=== PATIENT | female | born 1940 | race Caucasian/White ===

== ENCOUNTER → 2018-12-13 | Outpatient (CLI) | payer OTHER ==
[~2018-12-13] MED LIST: ACET325; ACET325 PO; AMOCLA875 PO; ASPI325; ASPI325 PO; ASPI81CH PO; BUPR150ER; CALCAVITDA; CALCAVITDA PO; CALPRATL; DIPH25; DOC250 PO; DOCU100; DOCU100 PO; DULO60; DULO60 PO; FURO40; FURO40 PO; FURO80; GLUC500 PO; GUAI600T33 PO; IBUP600 PO; INSULANPEN; LOVA40; METF500 PO; METO5; MULVITMINF; NYST100P; OMEP20ER PO; OXYACE5T PO; OXYB5; OXYB5 PO; PRAV20 PO; PROACE100; PROACE100 PO; PROM25; SENN187 PO; SERT100; SIMV40 PO; SITA100T2 PO; SPIR25; SPIR25 PO; SPIR50; TRIA80TC; VERA120; VERA120 PO; VERA180ERB PO; VERA240ER; [UNRECOGNIZED DRUG - OTHER]; [UNRECOGNIZED DRUG - OTHER]; [UNRECOGNIZED DRUG - OTHER]
[2018-12-13 15:12] LABS: Hematocrit 41.7 % (33.0-51.0); Mean Corpuscular HGB 30.1 pg (26.0-34.0); Mean Corpuscular HGB Conc 31.2 g/dL (31.5-36.5); Mean Corpuscular Volume 97 fL (80-100); Mean Platelet Volume 10.1 fL (9.1-12.4); Platelet Count 216 K/mm3 (150-400); RDW Coefficient Variation 13.6 % (11.7-14.2); RDW Standard Deviation 48.7 fL (35.1-46.3); Red Blood Cell Count 4.32 M/mm3 (3.80-5.20); White Blood Cell Count 8.42 K/mm3 (4.00-11.30)
[2018-12-13 15:28] LABS: Bun/Creatinine Ratio 24.8 (12.0-20.0); Calcium, Blood 9.2 mg/dL (8.5-10.1); Creatinine, Blood 1.25 mg/dL (0.40-1.00); Potassium, Blood 3.6 mmol/L (3.5-5.5)
== END | disposition home or self-care (01) ==
LOC: EDSTATUS 10:20 → LAB UVN 14:45
DX: I69.354 Hemiplegia and hemiparesis following cerebral infarction affecting left non-dominant side (principal); I48.91 Unspecified atrial fibrillation; E11.610 Type 2 diabetes mellitus with diabetic neuropathic arthropathy; I10 Essential (primary) hypertension
CPT/HCPCS: 80048; 85027

== ENCOUNTER → 2019-07-23 | Outpatient (CLI) | payer OTHER | END | disposition home or self-care (01) | LOC: LAB UVN 11:20 → EDSTATUS 15:28 | DX: E11.610 Type 2 diabetes mellitus with diabetic neuropathic arthropathy (principal) | CPT/HCPCS: 83036 ==

== ENCOUNTER → 2019-10-03 | Outpatient (CLI) | payer OTHER | END | disposition home or self-care (01) | LOC: LAB UVN 08:03 → EDSTATUS 13:15 → LAB UVN 13:16 | DX: E11.610 Type 2 diabetes mellitus with diabetic neuropathic arthropathy (principal) | CPT/HCPCS: 36415; 83036 ==

== ENCOUNTER → 2020-03-19 | Outpatient (CLI) | payer OTHER | END | disposition home or self-care (01) | LOC: LAB UVN 02:07 → EDSTATUS 09:33 | DX: E11.610 Type 2 diabetes mellitus with diabetic neuropathic arthropathy (principal) | CPT/HCPCS: 83036 ==

== ENCOUNTER → 2020-05-11 | Outpatient (CLI) | payer OTHER ==
[2020-05-11 06:24] LABS: Bun/Creatinine Ratio 26.7 (12.0-20.0); Calcium, Blood 9.9 mg/dL (8.5-10.1); Creatinine, Blood 1.01 mg/dL (0.40-1.00); Potassium, Blood 4.3 mmol/L (3.5-5.5)
== END | disposition home or self-care (01) ==
LOC: LAB UVN 05:58 → EDSTATUS 09:37
PROVIDERS: Nurse Practitioner Adult Health
DX: E11.610 Type 2 diabetes mellitus with diabetic neuropathic arthropathy (principal)
CPT/HCPCS: 80048

== ENCOUNTER → 2020-05-19 | Outpatient (CLI) | payer OTHER ==
[2020-05-19 06:09] LABS: BASOPHILS ABSOLUTE AUTO 0.02 K/mm3 (0.00-0.23); BASOPHILS PERCENT AUTO 0 % (0-2); EOSINOPHILS ABSOLUTE AUTO 0.22 K/mm3 (0.00-0.68); EOSINOPHILS PERCENT AUTO 3 % (0-6); Hematocrit 41.6 % (33.0-51.0); Hemoglobin 12.8 g/dL (11.5-16.0); IMMATURE GRAN ABSOLUTE AUTO 0.03 K/mm3 (0.00-0.10); IMMATURE GRAN PERCENT AUTO 1 % (0-1); LYMPHOCYTES ABSOLUTE AUTO 2.49 K/mm3 (0.84-5.20); LYMPHOCYTES PERCENT AUTO 39 % (21-46); MONOCYTES ABSOLUTE AUTO 0.56 K/mm3 (0.16-1.47); MONOCYTES PERCENT AUTO 9 % (4-13); Mean Corpuscular HGB 29.7 pg (26.0-34.0); Mean Corpuscular HGB Conc 30.8 g/dL (31.5-36.5); Mean Corpuscular Volume 97 fL (80-100); Mean Platelet Volume 10.1 fL (9.1-12.4); NEUTROPHILS ABSOLUTE AUTO 3.12 K/mm3 (1.96-9.15); NEUTROPHILS PERCENT AUTO 48 % (41-73); Platelet Count 248 K/mm3 (150-400); RDW Standard Deviation 46.8 fL (35.1-46.3); Red Blood Cell Count 4.31 M/mm3 (3.80-5.20); White Blood Cell Count 6.44 K/mm3 (4.00-11.30)
[2020-05-19 06:28] LABS: Bun/Creatinine Ratio 24.3 (12.0-20.0); Calcium, Blood 9.7 mg/dL (8.5-10.1); Creatinine, Blood 0.95 mg/dL (0.40-1.00); Potassium, Blood 4.3 mmol/L (3.5-5.5); Thyroid Stimulating Hormone 3.05 uIU/mL (0.360-4.800)
== END | disposition home or self-care (01) ==
LOC: LAB UVN 05:59 → EDSTATUS 10:20
PROVIDERS: Nurse Practitioner Adult Health
DX: Z29.9 Encounter for prophylactic measures, unspecified (principal)
CPT/HCPCS: 80048; 84443; 85025

== ENCOUNTER → 2020-06-10 | Outpatient (CLI) | payer OTHER | END | disposition home or self-care (01) | LOC: EDSTATUS 09:37 → LAB UVN 20:15 | DX: E11.610 Type 2 diabetes mellitus with diabetic neuropathic arthropathy (principal) | CPT/HCPCS: 83036 ==

== ENCOUNTER → 2020-09-03 | Outpatient (CLI) | payer OTHER | END | disposition home or self-care (01) | LOC: LAB UVN 06:12 → EDSTATUS 13:10 | DX: E11.610 Type 2 diabetes mellitus with diabetic neuropathic arthropathy (principal); I69.354 Hemiplegia and hemiparesis following cerebral infarction affecting left non-dominant side; E66.01 Morbid (severe) obesity due to excess calories | CPT/HCPCS: 83036 ==

== ENCOUNTER → 2020-10-23 | Outpatient (CLI) | payer OTHER ==
[2020-10-23 05:55] LABS: Bun/Creatinine Ratio 21.5 (12.0-20.0); Calcium, Blood 9.7 mg/dL (8.5-10.1); Creatinine, Blood 0.98 mg/dL (0.40-1.00); Potassium, Blood 4.1 mmol/L (3.5-5.5)
== END | disposition home or self-care (01) ==
LOC: LAB UVN 05:32 → EDSTATUS 08:49
PROVIDERS: Internal Medicine
DX: E11.610 Type 2 diabetes mellitus with diabetic neuropathic arthropathy (principal)
CPT/HCPCS: 80048

== ENCOUNTER → 2020-11-26 | Outpatient (CLI) | payer OTHER | END | disposition home or self-care (01) | LOC: LAB UVN 05:00 → EDSTATUS 14:07 | DX: E11.610 Type 2 diabetes mellitus with diabetic neuropathic arthropathy (principal) | CPT/HCPCS: 83036 ==

== ENCOUNTER → 2021-02-18 | Outpatient (CLI) | payer OTHER | LOC: LAB UVN 05:00 → EDSTATUS 11:14 | DX: E11.9 Type 2 diabetes mellitus without complications (principal); Z79.84 Long term (current) use of oral hypoglycemic drugs; Z88.8 Allergy status to other drugs, medicaments and biological substances; Z88.1 Allergy status to other antibiotic agents | CPT/HCPCS: 83036 ==

== ENCOUNTER → 2021-05-13 | Outpatient (CLI) | payer OTHER | LOC: LAB UVN 10:40 → EDSTATUS 15:31 | DX: E11.610 Type 2 diabetes mellitus with diabetic neuropathic arthropathy (principal); Z79.4 Long term (current) use of insulin; Z88.1 Allergy status to other antibiotic agents; Z88.8 Allergy status to other drugs, medicaments and biological substances; Z91.048 Other nonmedicinal substance allergy status | CPT/HCPCS: 83036 ==

== ENCOUNTER → 2021-08-10 | Outpatient (CLI) | payer OTHER ==
[2021-08-11 07:11] LABS: BASOS 0 % (Not Estab.); EOS 0 % (Not Estab.); HEMATOCRIT 37.8 % (34.0-46.6); HEMOGLOBIN 12.4 g/dL (11.1-15.9); IMMATURE GRANULOCYTES 0 % (Not Estab.); LYMPHS 29 % (Not Estab.); LYMPHS (ABSOLUTE) 1.6 x10E3/uL (0.7-3.1); MCH 30.1 pg (26.6-33.0); MCHC 32.8 g/dL (31.5-35.7); MCV 92 fL (79-97); MONOCYTES 5 % (Not Estab.); MONOCYTES(ABSOLUTE) 0.3 x10E3/uL (0.1-0.9); NEUTROPHILS 66 % (Not Estab.); NEUTROPHILS (ABSOLUTE) 3.6 x10E3/uL (1.4-7.0); PLATELETS 205 x10E3/uL (150-450); RBC 4.12 x10E6/uL (3.77-5.28); RDW 12.7 % (11.7-15.4); WBC 5.5 x10E3/uL (3.4-10.8)
== END | disposition home or self-care (01) ==
LOC: LAB RH 10:25 → LAB UVN 10:25 → EDSTATUS 10:52
PROVIDERS: Internal Medicine
DX: I48.91 Unspecified atrial fibrillation (principal); I82.502 Chronic embolism and thrombosis of unspecified deep veins of left lower extremity; E78.5 Hyperlipidemia, unspecified; E11.610 Type 2 diabetes mellitus with diabetic neuropathic arthropathy
CPT/HCPCS: 85025

== ENCOUNTER → 2021-10-23 | Outpatient (CLI) | payer OTHER ==
[2021-10-23 08:04] LABS: Bun/Creatinine Ratio 31.7 (12.0-20.0); Calcium, Blood 9.5 mg/dL (8.5-10.1); Creatinine, Blood 1.04 mg/dL (0.40-1.00); Potassium, Blood 4.1 mmol/L (3.5-5.5)
== END | disposition home or self-care (01) ==
LOC: LAB UVN 05:15 → EDSTATUS 14:42
PROVIDERS: Internal Medicine
DX: E11.610 Type 2 diabetes mellitus with diabetic neuropathic arthropathy (principal)
CPT/HCPCS: 80048

== ENCOUNTER → 2021-10-28 | Outpatient (CLI) | payer OTHER | END | disposition home or self-care (01) | LOC: LAB UVN 05:17 → EDSTATUS 14:43 | DX: E11.610 Type 2 diabetes mellitus with diabetic neuropathic arthropathy (principal) | CPT/HCPCS: 83036 ==

== ENCOUNTER → 2021-12-18 | Outpatient (CLI) | payer OTHER ==
[2021-12-18 14:22] LABS: Appearance, Urine Hazy (Clear); Bilirubin, Urine Neg (Neg); Blood, Urine 1+ (Neg); Color, Urine Yellow (P-Yellow); Glucose Qualitative, Urine 4+ (Neg); Ketones, Urine Neg (Neg); Leukocyte Esterase, Urine 1+ (Neg); Nitrite, Urine Neg (Neg); Protein, Urine 3+ (Neg); Urobilinogen, Urine NORM (Normal)
[2021-12-18 14:44] LABS: Bacteria Many /hpf; Squamous Epithelial Cells Few /hpf (Few); Yeast/Fungi Urine Mod /hpf
== END | disposition home or self-care (01) ==
LOC: LAB UVN 11:36 → EDSTATUS 15:04
PROVIDERS: Internal Medicine
DX: R39.9 Unspecified symptoms and signs involving the genitourinary system (principal)
CPT/HCPCS: 81001; 87077; 87086; 87186

== ENCOUNTER → 2022-10-18 | Outpatient (CLI) | payer OTHER ==
[~2022-10-18] MED LIST changes: +CEPH500 PO; +ELIQUIS5 M2 PO; +HYDRA25 PO; +Klor-Con M1010 MEQ PO; +MIRALAX17 GM PO; +QUET25 PO; +VERA120ERB PO
[2022-10-19 00:06] LABS: Source, Urine Foley catheter
[2022-10-19 00:42] LABS: Bilirubin, Urine Neg (Neg); Blood, Urine 1+ (Neg); Glucose Qualitative, Urine Neg (Neg); Ketones, Urine Neg (Neg); Leukocyte Esterase, Urine 3+ (Neg); Nitrite, Urine Neg (Neg); Protein, Urine 2+ (Neg); Urobilinogen, Urine NORM (Normal)
[2022-10-19 00:43] LABS: Appearance, Urine Hazy (Clear); Color, Urine Yellow (P-Yellow)
[2022-10-19 00:45] LABS: Bacteria Many /hpf; Red Blood Cells, Urine 0-2 /hpf (0-2); Squamous Epithelial Cells Rare /hpf (Few); White Blood Cells, Urine 25-50 /hpf (0-5)
== END | disposition home or self-care (01) ==
LOC: EDSTATUS 15:55 → LAB UVN 23:12
PROVIDERS: Family Medicine
DX: N39.0 Urinary tract infection, site not specified (principal); R30.0 Dysuria
CPT/HCPCS: 81001; 87077; 87086; 87186

== ENCOUNTER 2022-10-21 11:08 | Emergency (ER) | payer OTHER ==
[~2022-10-21] VITALS: Ht 152.4 cm; Wt 136.1 kg
[~2022-10-21 11:08] MED LIST changes: -CEPH500 PO; -ELIQUIS5 M2 PO; -HYDRA25 PO; -Klor-Con M1010 MEQ PO; -MIRALAX17 GM PO; -QUET25 PO; -VERA120ERB PO
[2022-10-21] MEDS ORDERED: Klor-Con M1010 MEQ PO (14:09)
[2022-10-21] MEDS ORDERED: MIRALAX17 GM PO (14:09)
[2022-10-21] MEDS ORDERED: QUET25 PO (14:09)
[2022-10-21] MEDS ORDERED: VERA120ERB PO (14:10)
[2022-10-21] MEDS ORDERED: CEPH500 PO (14:10)
[2022-10-21] MEDS ORDERED: ELIQUIS5 M2 PO (14:10)
[2022-10-21] MEDS ORDERED: HYDRA25 PO (14:11)
[2022-10-21 16:39] LABS: BASOPHILS ABSOLUTE AUTO 0.04 K/mm3 (0.00-0.23); BASOPHILS PERCENT AUTO 0 % (0-2); EOSINOPHILS ABSOLUTE AUTO 0.03 K/mm3 (0.00-0.68); EOSINOPHILS PERCENT AUTO 0 % (0-6); Hematocrit 37.3 % (33.0-51.0); Hemoglobin 11.1 g/dL (11.5-16.0); IMMATURE GRAN ABSOLUTE AUTO 0.06 K/mm3 (0.00-0.10); IMMATURE GRAN PERCENT AUTO 1 % (0-1); LYMPHOCYTES ABSOLUTE AUTO 1.48 K/mm3 (0.84-5.20); LYMPHOCYTES PERCENT AUTO 13 % (21-46); MONOCYTES ABSOLUTE AUTO 1.15 K/mm3 (0.16-1.47); MONOCYTES PERCENT AUTO 10 % (4-13); Mean Corpuscular HGB 28.7 pg (26.0-34.0); Mean Corpuscular HGB Conc 29.8 g/dL (31.5-36.5); Mean Corpuscular Volume 96 fL (80-100); Mean Platelet Volume 10.5 fL (9.1-12.4); NEUTROPHILS ABSOLUTE AUTO 8.54 K/mm3 (1.96-9.15); NEUTROPHILS PERCENT AUTO 76 % (41-73); Platelet Count 248 K/mm3 (150-400); RDW Coefficient Variation 13.9 % (11.7-14.2); RDW Standard Deviation 49.3 fL (35.1-46.3); Red Blood Cell Count 3.87 M/mm3 (3.80-5.20)
[2022-10-21 17:09] LABS: Albumin, Blood 2.9 g/dL (3.4-5.0); Albumin/Globulin Ratio 0.7 (0.8-1.8); Bilirubin, Total 0.5 mg/dL (0.1-1.0); Bun/Creatinine Ratio 34.5 (12.0-20.0); Calcium, Blood 9.3 mg/dL (8.5-10.1); Creatinine, Blood 1.74 mg/dL (0.40-1.00); Potassium, Blood 3.9 mmol/L (3.5-5.5); Total Protein, Blood 6.9 g/dL (6.4-8.2)
== END 2022-10-21 18:21 | disposition home or self-care (01) ==
LOC: ER 11:08
PROVIDERS: Emergency Medicine
DX: I50.9 Heart failure, unspecified (principal); J18.9 Pneumonia, unspecified organism; E11.9 Type 2 diabetes mellitus without complications; I48.91 Unspecified atrial fibrillation; Z88.6 Allergy status to analgesic agent; Z88.1 Allergy status to other antibiotic agents; Z79.899 Other long term (current) drug therapy; Z79.84 Long term (current) use of oral hypoglycemic drugs; Z79.82 Long term (current) use of aspirin; Z79.4 Long term (current) use of insulin; Z86.73 Personal history of transient ischemic attack (TIA), and cerebral infarction without residual deficits
CPT/HCPCS: 71045; 80053; 83880; 84484; 85025; 93005; 93010; 96365; 96375; 99285-25; A9270; J0456; J1940; J7050